=== PATIENT | female | born 1945 | race Caucasian/White ===

== ENCOUNTER 2016-09-09 11:00 | Outpatient (CLI) | payer MEDICARE, BC, OTHER | END 2016-09-09 11:01 | disposition home or self-care (01) | DX: Z12.31 Encounter for screening mammogram for malignant neoplasm of breast (principal) ==

== ENCOUNTER 2020-09-13 17:32 | Emergency (ER) | payer MEDICARE, BC, OTHER ==
[2020-09-13 18:23] LABS: BASOPHILS % (AUTO) 0.5 %; EOSINOPHILS % (AUTO) 0.2 %; HGB - HEMOGLOBIN 11.3 g/dL (12.0-16.0); LYMPHOCYTES # (AUTO) 0.8 10^3/uL (1.5-3.5); LYMPHOCYTES % (AUTO) 9.8 %; MEAN CORPUSCULAR HEMOGLOBIN 24.4 pg (27.0-31.0); MEAN CORPUSCULAR HGB CONC 31.1 g/dL (32.0-36.0); MEAN CORPUSCULAR VOLUME 78.2 fL (81.0-99.0); MEAN PLATELET VOLUME 8.3 fL (7.9-10.8); MONOCYTES # (AUTO) 0.6 10^3/uL (0.0-1.0); MONOCYTES % (AUTO) 7.1 %; PLT - PLATELET COUNT 405 10^3/uL (130-450); RED BLOOD COUNT 4.64 10^6/uL (4.20-5.40); WHITE BLOOD COUNT 8.5 x10^3/uL (4.8-10.8)
[2020-09-13 18:37] LABS: ALBUMIN 3.1 g/dL (3.2-5.5); ALBUMIN/GLOBULIN RATIO 0.7 (1.0-2.2); ALKALINE PHOSPHATASE 81 IU/L (42-121); ALT ALANINE AMINOTRANSFERASE < 10 IU/L (10-60); AST ASPARTATE AMINOTRANSFERASE 10 IU/L (10-42); BILIRUBIN,TOTAL 0.4 mg/dL (0.2-1.0); BUN - BLOOD UREA NITROGEN 65 mg/dL (6-20); CALCIUM 9.1 mg/dL (8.5-10.3); CARBON DIOXIDE - CO2 19 mmol/L (21-32); CHLORIDE 104 mmol/L (101-111); CREATININE 2.6 mg/dL (0.4-1.0); GLUCOSE 114 mg/dL (70-100); LIPASE 24 U/L (22-51); SODIUM 134 mmol/L (135-145); TOTAL PROTEIN 7.8 g/dL (6.7-8.2)
[2020-09-13 18:53] LABS: BILIRUBIN,URINE NEGATIVE (NEGATIVE); GLUCOSE, URINE (UA) NEGATIVE (NEGATIVE); KETONES,URINE (UA) NEGATIVE (NEGATIVE); LEUKOCYTE ESTERASE, URINE LARGE (NEGATIVE); NITRITE,URINE NEGATIVE (NEGATIVE); OCCULT BLOOD,URINE LARGE (NEGATIVE); PROTEIN,URINE 100 mg/dL (NEGATIVE); UROBILINOGEN,URINE 0.2 (NORMAL) E.U./dL (NORMAL)
[2020-09-13 18:58] LABS: CLARITY,URINE TURBID (CLEAR)
[2020-09-13] MEDS ORDERED: SODIUM CHLORIDE 0.9% 1,000 ML IV STA ×2 (19:11→20:17)
[2020-09-13 19:41] LABS: BACTERIA,URINE Many /HPF (None Seen); SQUAMOUS EPITHELIAL CELL,UR NONE SEEN (<= Few); WBC CLUMPS,URINE PRESENT
[2020-09-13 21:15] LABS: CALCIUM 7.7 mg/dL (8.5-10.3); CREATININE 2.2 mg/dL (0.4-1.0)
[2020-09-13] MEDS ORDERED: MAGNESIUM CITRATE 296 ML BOTTLE PO STA (21:21)
--- NOTE | 2020-09-13 21:24 | ED Physician Documentation ---
History of Present Illness - Stated complaint Stated Complaint: CONSTIPATED, LEAKING COLOSTOMY BAG - Chief complaint Chief Complaint: Abd Pain - History obtained from History obtained from: Patient - History of Present Illness Timing: Today Pain level max: 0 Pain level now: 0 - Additonal information Additional information: Patient is a 75-year-old female that presents to the emergency department with ongoing constipation. She states that she has a left-sided colostomy as well as a left-sided urostomy. The left side urostomy has not been draining as much. She has an appointment [facility] on Wednesday to have this replaced. She is concerned because of decreased output in her ostomy bag. She states she has eaten and drank very little recently. She has not had any vomiting. Took magnesium citrate without relief. Uses is 4-6 times daily. No fevers. No chills. No blood in the stool. She is still passing gas into the ostomy bag. Review of Systems Constitutional: denies: Fever, Chills Respiratory: denies: Cough GI: denies: Nausea, Vomiting, Hematemesis, Bloody / black stool : denies: Dysuria Skin: denies: Rash Musculoskeletal: denies: Neck pain, Back pain PD PAST MEDICAL HISTORY - Past Medical History Cardiovascular: Hypertension Respiratory: Shortness of breath Endocrine/Autoimmune: None GI: Colon polyps, Chronic constipation : Renal insuffiency HEENT: None Psych: None Musculoskeletal: None Derm: None - Past Surgical History Past Surgical History: Yes General: Bowel surgery /[employer]ERCIAL [employer]ER: Hysterectomy - Present Medications Home Medications: Ambulatory Orders Medication Instructions Recorded Confirmed No Known Home Medications 09/13/20 09/13/20 - Allergies Allergies/Adverse Reactions: Allergies Allergy/AdvReac Type Severity Reaction Status Date / Time codeine [Codeine] Allergy Hallucinati Verified 09/13/20 17:49 ons Penicillins Allergy ORAL SORES Verified 09/13/20 17:49 sulfamethoxazole Allergy ORAL Verified 09/13/20 17:49 [From ] SWELLING trimethoprim [From ] Allergy ORAL Verified 09/13/20 17:49 SWELLING - Social History Does the pt smoke?: No Smoking Status: Never smoker Does the pt drink ETOH?: No Does the pt have substance abuse?: No - Immunizations Immunizations are current?: No PD ED PE NORMAL - Vitals Vital signs reviewed: Yes - General General: Alert and oriented X 3, Other (thin, frail female) - HEENT HEENT: Other (dry lips and tongue) - Neck Neck: Supple, no meningeal sign - Cardiac Cardiac: RRR - Respiratory Respiratory: No respiratory distress, Clear bilaterally - Abdomen Abdomen: Soft, Non tender, Non distended, Other (Colostomy in the left side of abdomen.) - Back Back: No CVA TTP - Derm Derm: Warm and dry - Extremities Extremities: No edema - Neuro Neuro: Alert and oriented X 3 - Psych Psych: Normal mood, Normal affect Results - Vitals Vitals: Vital Signs - 24 hr 09/13/20 09/13/20 17:40 21:51 Temperature 36.4 C L Heart Rate 74 70 Respiratory 18 18 Rate Blood Pressure 134/77 H 123/69 O2 Saturation 94 97 Oxygen O2 Source Room air - Labs Labs: Laboratory Tests 09/13/20 09/13/20 09/13/20 18:19 18:19 18:40 WBC 8.5 RBC 4.64 Hgb 11.3 L Hct 36.3 L MCV 78.2 L MCH 24.4 L MCHC 31.1 L RDW 17.0 H Plt Count 405 MPV 8.3 Neut # (Auto) 7.0 H Lymph # (Auto) 0.8 L [place] # (Auto) 0.6 Eos # (Auto) 0.0 Baso # (Auto) 0.0 Absolute Nucleated RBC 0.00 Nucleated RBC % 0.0 Sodium 134 L Potassium 5.3 H Chloride 104 Carbon Dioxide 19 L Anion Gap 11.0 BUN 65 H Creatinine 2.6 H Estimated GFR (MDRD) 18 L Glucose 114 H Calcium 9.1 Total Bilirubin 0.4 AST 10 ALT < 10 L Alkaline Phosphatase 81 Total Protein 7.8 Albumin 3.1 L Globulin 4.7 H Albumin/Globulin Ratio 0.7 L Lipase 24 Urine Color YELLOW Urine Clarity TURBID Urine pH 6.0 Ur Specific [place] 1.020 Urine Protein 100 H Urine Glucose (UA) NEGATIVE Urine Ketones NEGATIVE Urine Occult Blood LARGE H Urine Nitrite NEGATIVE Urine Bilirubin NEGATIVE Urine Urobilinogen 0.2 (NORMAL) Ur Leukocyte Esterase LARGE H Urine RBC 11-25 H Urine WBC >25 H Urine WBC Clumps PRESENT Ur Squamous Epith Cells NONE SEEN Urine Bacteria Many H Ur Microscopic Review INDICATED Urine Culture Comments INDICATED 09/13/20 20:58 WBC RBC Hgb Hct MCV MCH MCHC RDW Plt Count MPV Neut # (Auto) Lymph # (Auto) [place] # (Auto) Eos # (Auto) Baso # (Auto) Absolute Nucleated RBC Nucleated RBC % Sodium 136 Potassium 4.6 Chloride 112 H Carbon Dioxide 18 L Anion Gap 6.0 BUN 61 H Creatinine 2.2 H Estimated GFR (MDRD) 22 L Glucose 89 Calcium 7.7 L Total Bilirubin AST ALT Alkaline Phosphatase Total Protein Albumin Globulin Albumin/Globulin Ratio Lipase Urine Color Urine Clarity Urine pH Ur Specific [place] Urine Protein Urine Glucose (UA) Urine Ketones Urine Occult Blood Urine Nitrite Urine Bilirubin Urine Urobilinogen Ur Leukocyte Esterase Urine RBC Urine WBC Urine WBC Clumps Ur Squamous Epith Cells Urine Bacteria Ur Microscopic Review Urine Culture Comments PD MEDICAL DECISION MAKING - ED course Complexity details: reviewed results, re-evaluated patient, considered differential, d/w patient ED course: The patient's urostomy bag had been clogged by sediment, this was removed in the urostomy bag is now draining freely. She was in acute renal failure with hyperkalemia. Given IV fluids creatinine improved, hyperkalemia improved. Sharlene ent requests something for constipation. Given half of a bottle of magnesium citrate. Patient is well-appearing, nontoxic. Afebrile. We will have her follow-up with her doctor on Wednesday as scheduled. Patient counseled regarding signs and symptoms for which I believe and urgent re-evaluation would be necessary. Patient with good understanding of and agreement to plan and is comfortable going home at this time This document was made in part using voice recognition software. While efforts are made to proofread this document, sound alike and grammatical errors may occur. Departure - Departure Disposition: Home, Self Care Clinical Impression: Dehydration, Renal insufficiency Constipation Qualifiers: Constipation type: unspecified constipation type Qualified Code(s): K59.00 - Constipation, unspecified Condition: Good Instructions: ED Constipation Follow-Up: Rustam Lin MD [Primary Care Provider] - Comments: Make sure you are drinking plenty of water at home. You need to have your kidney function rechecked next week with your doctor, preferably on Wednesday or Wednesday. Your urostomy is draining well now. Your creatinine decreased to 2.2 from 2.6 and should keep improving. Return if you worsen. Discharge Date/Time: 09/13/20 21:51
[2020-09-13 21:51] VITALS: BP 123/69
--- OUTSIDE RECORDS SUMMARY | 2020-09-18 01:46 | EXTERNAL MEDICAL SUMMARY RPT | Continuity of Care Document ---
:1945 Demographics Phone Unavailable Preferred Language Unknown Marital Status Unknown [place] Affiliation Unknown Race Unknown Ethnic Group Unknown Author Organization [facility] Address [address] [phone] Phone Care Team Providers Name Role Phone Lin Unavailable Unavailable Allergies date description [facility] NO KNOWN ENVIRONMENTAL ALLERGIES [facility] No Known Drug Allergies [facility] NO KNOWN ENVIRONMENTAL ALLERGIES [facility] NO KNOWN ALLERGIES [facility] sulfamethoxazole [facility] trimethoprim [facility] Results Social History date description facility [id number]
== END 2020-09-13 21:51 | disposition home or self-care (01) ==
LOC: ED 17:32
DX: E86.0 Dehydration (principal); N17.9 Acute kidney failure, unspecified; E87.5 Hyperkalemia; K59.00 Constipation, unspecified; Z93.3 Colostomy status; Z43.6 Encounter for attention to other artificial openings of urinary tract; Z46.6 Encounter for fitting and adjustment of urinary device; I10 Essential (primary) hypertension
CPT/HCPCS: 80048; 80053; 81001; 83690; 85025; 96360; 96361; 99283; 99284; A9270; 81003; 87086

== ENCOUNTER 2020-10-09 08:48 | Outpatient (CLI) | payer MEDICARE, BC, OTHER | END 2020-10-09 23:59 | disposition E | LOC: EMS 08:48 ==